=== PATIENT | male | born 1950 | race Caucasian/White ===

== ENCOUNTER 2017-08-13 14:39 | Emergency (ER) | payer MEDICARE, BC ==
--- NOTE | 2017-08-13 15:46 | EDM.PDOC ---
ED HPI GENERAL MEDICAL PROBLEM - General Chief Complaint: General Stated Complaint: edema, weakness Time Seen by Provider: 08/13/17 14:55 Source of Information: Reports: Patient, Old Records ([facility] EMR. No paper hospital chart available.), Other (Limited records from [facility]) History Limitations: Reports: No Limitations - History of Present Illness INITIAL COMMENTS - FREE TEXT/NARRATIVE: Patient was brought to the emergency room via transport vehicle from his assisted living facility for evaluation of progressive confusion during the last few days secondary to his hepatic encephalopathy with additional history of return progressive nonspecific abdominal pain secondary to his recurrent ascites. Patient did have a paracentesis in this facility on 08/08/17 with subsequent IV albumin infusion, however symptoms continued to remain refractory to therapy. He is a somewhat poor historian secondary to his mental status, which is aggravated by his hyponatremia. His regular provider did order blood work earlier this morning. The patient denies any chest pain/pressure, heart flutter, dizziness, orthostasis, orthopnea, diaphoresis, paresthesias, recent decreased exercise tolerance, or any other anginal-type symptoms. No recent history of heartburn, nausea, diarrhea, melena, gross hematochezia, or any food intolerance, including fatty foods, etc.. The patient also denies any recent fever, cough, wheezing, dyspnea, etc.. Onset: Gradual Duration: Day(s):, Constant, Getting Worse Location: Reports: Abdomen, Generalized. Denies: Head, Face, Neck, Chest, Back , Pelvis, Upper Extremity, Left, Upper Extremity, Right, Lower Extremity, Right , Radiates to Quality: Reports: Pressure, Same as Previous Episode Severity: Moderate Improves with: Reports: None Context: Reports: Other (As above) Associated Symptoms: Reports: Confusion. 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) (None) Abdomen Pain Score (Numeric/FACES): 7 - Related Data Allergies Allergy/AdvReac Type Severity Reaction Status Date / Time Penicillins Allergy Vomiting Verified 08/08/17 14:34 Home Meds: Home Meds Budesonide [Pulmicort Flexhaler] 2 inh IH BID 08/13/17 [History] Bumetanide [Bumex] 1 mg PO BID 08/13/17 [History] Cyanocobalamin (Vitamin B-12) [B-12] 500 mcg PO DAILY 08/13/17 [History] Folic Acid 1 mg PO DAILY 08/13/17 [History] Lactulose [Chronulac] 30 ml PO BID 08/13/17 [History] Magnesium Oxide [Magnesium] 400 mg PO BID 08/13/17 [History] Midodrine 10 mg PO TID 08/13/17 [History] Multivitamin [Multi-Day Vitamins] 1 each PO DAILY 08/13/17 [History] Omeprazole 40 mg PO DAILY 08/13/17 [History] Spironolactone [Aldactone] 50 mg PO DAILY 08/13/17 [History] Thiamine [Vitamin B-1] 100 mg PO DAILY 08/13/17 [History] Past Medical History HEENT History: Reports: Impaired Vision, Other (See Below). Denies: Allergic Rhinitis, Cataract, Glaucoma, Hard of Hearing, Macular Degeneration Other HEENT History: Patient wears glasses Cardiovascular History: Denies: Aneurysm, Arrhythmia, Blood Clots/VTE/DVT, CAD, Heart Failure, High Cholesterol, Hypertension, ME, Syncope Respiratory History: Reports: Bronchitis, Recurrent, COPD. Denies: PE Gastrointestinal History: Reports: GERD, Hepatitis, Jaundice, Other (See Below) . 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 Denies: Acute Renal Failure, Chronic Renal Insuffiency, Renal Calculus, Urinary Incontinence, UTI, Recurrent Musculoskeletal History: Reports: None. Denies: Arthritis, Back Pain, Chronic, Fracture, Gout, Neck Pain, Chronic, Osteoarthritis, Osteoporosis, RA, SLE Neurological History: Reports: Other (See Below). Denies: Cerebral Aneurysms, Concussion, CVA, Headaches, Chronic, Head Trauma, Migraines, MS, Parkinson's, Seizure, TIA Other Neuro History: Patient denies DTs however evidence of alcoholic encephalopathy Psychiatric History: Reports: Addiction, Anxiety, Depression, Other (See Below) . Denies: Psych Hospitalization(s), Psychosis, PTSD, Suicide Attempt, Suicidal Ideation Other Psychiatric History: Alcohol abuse for about 12 years with no alcohol use since April 2017 secondary to liver disease as above Endocrine/Metabolic History: Reports: Other (See Below). Denies: Diabetes, Type I, Diabetes, Type II, Hypothyroidism, IDDM Other Endocrine/Metabolic History: Known hypoalbuminemia, hypomagnesemia, hyponatremia, etc. with alcohol hepatic disease as above Hematologic History: Reports: Anemia, B12 Deficiency, Other (See Below). Denies : Blood Transfusion(s) Other Hematologic History: Folic acid deficiency Immunologic History: Reports: Immunosuppression, Other (See Below). Denies: AIDS, HIV, SLE Other Immunologic History: Hepatic failure Oncologic (Cancer) History: Reports: None. Denies: Basal Cell Carcinoma, Hodgkin's Lymphoma, Leukemia, Lymphoma, Malignant Melanoma, Non-Hodgkin's Lymphoma, Squamous Cell Carcinoma Dermatologic History: Denies: Eczema, Psoriasis, Venous Stasis Dermatitis - Infectious Disease History Infectious Disease History: Reports: Chicken Pox, Measles. Denies: C-Difficile , Hepatitis B, Hepatitis C, Hepatitis non A,B,C, Meningitis, Mononucleosis, MRSA , Mumps, Pertussis (Whooping Cough), Rheumatic Fever, Rubella, Scarlet Fever, Shingles, TB, VRE - Past Surgical History Head Surgeries/Procedures: Reports: None HEENT Surgical History: Reports: None Cardiovascular Surgical History: Reports: None. Denies: Varicose, Vascular Surgery Respiratory Surgical History: Reports: None. Denies: Thoracentesis GI Surgical History: Reports: Abdominal paracentesis, Other (See Below). Denies : Appendectomy, Cholecystectomy, Colonoscopy, EGD, Hernia, Abdominal, Hernia, Inguinal, Hernia Repair/Other, Polypectomy Other GI Surgeries/Procedures: Recurrent paracentesis with last procedure on at [facility] Male Surgical History: Reports: None. Denies: TURP-Transurethral Resection of Prostate, Vasectomy Endocrine Surgical History: Reports: None Neurological Surgical History: Reports: None Musculoskeletal Surgical History: Reports: None Oncologic Surgical History: Reports: None Dermatological Surgical History: Reports: None - History Comment History Comment: Patient is a poor historian possibly secondary to alcoholic encephalopathy and hyponatremia Social & Family History - Tobacco Use Smoking Status *Q: Former Smoker Tobacco Use Within Last Twelve Months: Cigarettes Years of Tobacco use: 40 Packs/Tins Daily: 1.5 (Smoked between ages 17 and 57) Second Hand Smoke Exposure: No - Caffeine Use Caffeine Use: Reports: None - Alcohol Use Alcohol Use History: Yes Days Per Week of Alcohol Use: 7 (Recall abuse history as above) Date/Time of Last Drink Comment: April 2017 Alcohol Use in Last Twelve Months: Yes Alcohol Use Frequency: Binges - Recreational Drug Use Recreational Drug Use: No Drug Use in Last 12 Months: No - Living Situation & Occupation Living situation: Reports: Assisted Living ([facility] assisted living facility in [place]) ED ROS GENERAL - Review of Systems Review Of Systems: ROS reveals no pertinent complaints other than HPI. ED EXAM, GENERAL - Physical Exam Exam: See Below Exam Limited By: Altered Mental Status General Appearance: WD/WN, No Apparent Distress, Anxious (Mild), Other (Mild confusion and sedation) Eye Exam: Bilateral Eye: EOMI, PERRL, Other (Moderate scleral icterus with no nystagmus; patient wearing glasses;) Ears: Normal External Exam, Normal Canal, Hearing Grossly Normal, Normal TMs Nose: Normal Inspection, Normal Mucosa, No Blood Throat/Mouth: Normal Inspection, Normal Lips, Normal Teeth, Normal Gums, Normal Oropharynx, Normal Voice, No Airway Compromise. No: Dysphagia, Perioral Cyanosis Head: Atraumatic, Normocephalic. No: Facial Swelling, Facial Tenderness, Sinus Tenderness Neck: Normal Inspection, Supple, Non-Tender, Full Range of Motion. No: Lymphadenopathy (L), Lymphadenopathy (R), Thyromegaly Respiratory/Chest: No Respiratory Distress, Lungs Clear, Normal Breath Sounds, No Accessory Muscle Use, Chest Non-Tender. No: Pleural Rub, Retractions Cardiovascular: Normal Peripheral Pulses, Regular Rate, Rhythm, No Edema, No Gallop, No JVD, No Murmur, No Rub. No: Gallop/S3, Gallop/S4, Friction Rub Peripheral Pulses: 2+: Radial (L), Radial (R) GI/Abdominal: Normal Bowel Sounds, Distended (Secondary to severe ascites), Rigid (As above), Tender (Mild diffuse palpation pain), Hepatomegaly, Splenomegaly. No: Guarding, Rebound (Male) Exam: Deferred Rectal (Males) Exam: Deferred Back Exam: Normal Inspection, Full Range of Motion. No: CVA Tenderness (L), CVA Tenderness (R) Extremities: Normal Inspection, Normal Range of Motion, Non-Tender, No Pedal Edema, Normal Capillary Refill. No: Miguel's Sign Neurological: CN II-XII Intact, Normal Cognition, Normal Gait, Normal Reflexes, No Motor/Sensory Deficits, Confused (Mild) Psychiatric: Anxious (Mild), Depressed Mood (Mild). No: Tearful Skin Exam: Jaundice (Moderate). No: Diaphoretic, Petechiae, Wound/Incision Lymphatic: No Adenopathy Course - Vital Signs Last Recorded V/S: Last Vital Signs Temp 36.5 C 08/13/17 14:41 Pulse 100 08/13/17 14:41 Resp 20 08/13/17 14:41 BP 119/62 08/13/17 14:41 Pulse Ox 99 08/13/17 14:41 Vital Signs - 24 hr 08/13/17 14:41 Temperature [ 36.5 C Temporal] Pulse, 100 Peripheral [ Pulse Oximetry] Respiratory 20 Rate Blood Pressure 119/62 [Left Upper Arm ] O2 Sat by Pulse 99 Oximetry - Orders/Labs/Meds Orders: Active Orders 24 hr Category Date Time Status Obtain Past Medical Record [OM.PC] Routine Oth 08/13/17 15:19 Active Labs: Laboratory Tests 08/13/17 08/13/17 08/13/17 Range/Units 15:37 15:37 15:37 PT 14.7 H (9.8-11.7) SEC INR 1.4 APTT 30.6 H (22.1-29.8) SEC Sodium 125 L (136-145) mmol/L Potassium 3.6 (3.5-5.1) mmol/L Chloride 90 L (98-107) mmol/L Carbon Dioxide 29.7 (21.0-32.0) mmol/L BUN 6 L (7-18) mg/dL Creatinine 0.55 (0.51-1.17) mg/dL Est Cr Clr Drug Dosing 138.81 mL/min Estimated GFR (MDRD) > 60 mL/min Glucose 125 H (74-106) mg/dL Lactic Acid 2.0 (0.4-2.0) mmol/L Calcium 8.4 L (8.5-10.1) mg/dL Total Bilirubin 3.1 H (0.2-1.0) mg/dL AST 31 (15-37) U/L ALT 23 (12-78) U/L Alkaline Phosphatase 108 (46-116) IU/L Ammonia (11-32) umol/L Total Protein 6.0 L (6.4-8.2) g/dL Albumin 3.3 L (3.4-5.0) g/dL Amylase 70 (25-115) U/L Lipase 370 (73-393) U/L Ethyl Alcohol (0.000-0.080) g/dL 08/13/17 08/13/17 Range/Units 15:37 15:37 PT (9.8-11.7) SEC INR APTT (22.1-29.8) SEC Sodium (136-145) mmol/L Potassium (3.5-5.1) mmol/L Chloride (98-107) mmol/L Carbon Dioxide (21.0-32.0) mmol/L BUN (7-18) mg/dL Creatinine (0.51-1.17) mg/dL Est Cr Clr Drug Dosing mL/min Estimated GFR (MDRD) mL/min Glucose (74-106) mg/dL Lactic Acid (0.4-2.0) mmol/L Calcium (8.5-10.1) mg/dL Total Bilirubin (0.2-1.0) mg/dL AST (15-37) U/L ALT (12-78) U/L Alkaline Phosphatase (46-116) IU/L Ammonia 34 H (11-32) umol/L Total Protein (6.4-8.2) g/dL Albumin (3.4-5.0) g/dL Amylase (25-115) U/L Lipase (73-393) U/L Ethyl Alcohol 0.001 (0.000-0.080) g/dL See photocopies of CBC, basic metabolic panel, etc. conducted earlier today from previous blood work Meds: None - Radiology Interpretation Free Text/Narrative:: None Departure - Departure Time of Disposition: 17:10 Disposition: DC/Tfer to Acute Hospital 02 Condition: Poor Clinical Impression: Hepatic failure due to alcoholism, Hyponatremia, Alcoholic encephalopathy, Mixed anxiety depressive disorder, Peptic reflux disease COPD (chronic obstructive pulmonary disease) Qualifiers: COPD type: emphysema Emphysema type: panlobular Qualified Code(s): J43.1 - Panlobular emphysema Anemia Qualifiers: Anemia type: other cause Other causes of anemia: other cause, not classified Qualified Code(s): D64.89 - Other specified anemias - Discharge Information Referrals: Bisi Bush, TELECOMMUNICATIONS ENGINEER [Primary Care Provider] - Forms: ED Department Discharge, Interfacility Transfer EMTALA - Problem List & Annotations (1) Hepatic failure due to alcoholism SNOMED Code(s): 359629988 Code(s): K70.40 - ALCOHOLIC HEPATIC FAILURE WITHOUT COMA Status: Chronic Priority: High Current Visit: Yes Annotation/Comment:: Telephone consultation at 16:[address] Santana, hospitalist at [facility], who does accept the patient for direct admission, with no further treatment recommendations given. He is aware of private automobile transfer with the patient's [id number] to drive him [facility] to that facility for hospitalization. Patient will likely need repeat paracentesis, nephrology consultation, etc. (2) Hyponatremia SNOMED Code(s): 66585510 Code(s): E87.1 - HYPO-OSMOLALITY AND HYPONATREMIA Status: Chronic Priority: Medium Current Visit: Yes Annotation/Comment:: Note that 50 mg of IV albumin was infused to recent paracentesis in our facility on 08/08/17. Medication adjustment depending on his clinical course (3) Alcoholic encephalopathy SNOMED Code(s): 747743326 Code(s): G31.2 - DEGENERATION OF NERVOUS SYSTEM DUE TO ALCOHOL; F10.20 - ALCOHOL DEPENDENCE, UNCOMPLICATED Status: Chronic Priority: Medium Current Visit: Yes Annotation/Comment:: Continue to observe his mental status closely with vitamin B-12, folic acid etc. already being supplemented. Note additional hyponatremia as above (4) Mixed anxiety depressive disorder SNOMED Code(s): 836514998 Code(s): F41.8 - OTHER SPECIFIED ANXIETY DISORDERS Status: Chronic Priority: Medium Current Visit: Yes Annotation/Comment:: Stable by history with no alcohol use in April 2017 with normal alcohol level today (5) Anemia SNOMED Code(s): 616662322 Code(s): D64.9 - ANEMIA, UNSPECIFIED Status: Chronic Priority: Medium Current Visit: Yes Annotation/Comment:: Continue to observe closely by accepting providers. No direct evidence of acute GI bleed. Patient denies esophageal varices despite his history of probable portal hypertension Qualifiers: Anemia type: other cause Other causes of anemia: other cause, not classified Qualified Code(s): D64.89 - Other specified anemias (6) COPD (chronic obstructive pulmonary disease) SNOMED Code(s): 03373429 Code(s): J44.9 - CHRONIC OBSTRUCTIVE PULMONARY DISEASE, UNSPECIFIED Status : Chronic Priority: Medium Current Visit: Yes Annotation/Comment:: Stable by history with no recent fever or bronchitic type symptoms Qualifiers: COPD type: emphysema Emphysema type: panlobular Qualified Code(s): J43.1 - Panlobular emphysema (7) Peptic reflux disease SNOMED Code(s): 81342942 Code(s): K21.9 - GASTRO-ESOPHAGEAL REFLUX DISEASE WITHOUT ESOPHAGITIS Status: Chronic Priority: Medium Current Visit: Yes Annotation/Comment:: Currently only under therapy. Further GI workup depending on his clinical course - Problem List Review Problem List Initiated/Reviewed/Updated: Yes - My Orders Last 24 Hours: My Active Orders 08/13/17 15:19 Obtain Past Medical Record [OM.PC] Routine - Assessment/Plan Last 24 Hours: My Active Orders 08/13/17 15:19 Obtain Past Medical Record [OM.PC] Routine Assessment:: As above Plan: As above. Extensive precautions were given to the patient and his daughter-in- law, who are in agreement with the treatment plan.
[2017-08-13 16:00] LABS: CHLORIDE,CL 90 mmol/L (98-107); SODIUM,NA 125 mmol/L (136-145)
== END 2017-08-13 17:05 ==
LOC: LL.ED 14:39
DX: K70.40 Alcoholic hepatic failure without coma (principal); G31.2 Degeneration of nervous system due to alcohol; F41.8 Other specified anxiety disorders; K21.9 Gastro-esophageal reflux disease without esophagitis; J43.1 Panlobular emphysema; E87.1 Hypo-osmolality and hyponatremia; D64.89 Other specified anemias; Z87.891 Personal history of nicotine dependence; Z79.899 Other long term (current) drug therapy; Z88.0 Allergy status to penicillin
CPT/HCPCS: 36415; 80053; 82140; 82150; 83605; 83690; 85610; 85730; 99285; G0480

== ENCOUNTER 2017-09-04 19:15 | Observation (INO) | END 2017-09-06 12:15 | disposition home or self-care (01) | DX: K70.40 Alcoholic hepatic failure without coma (principal); J44.9 Chronic obstructive pulmonary disease, unspecified; N40.0 Benign prostatic hyperplasia without lower urinary tract symptoms; K21.9 Gastro-esophageal reflux disease without esophagitis; F41.9 Anxiety disorder, unspecified; F32.9 Major depressive disorder, single episode, unspecified; E88.09 Other disorders of plasma-protein metabolism, not elsewhere classified; E83.42 Hypomagnesemia; E87.1 Hypo-osmolality and hyponatremia; Z79.899 Other long term (current) drug therapy; Z88.0 Allergy status to penicillin; Z87.891 Personal history of nicotine dependence | CPT/HCPCS: 36415; 49083; 80048; 80076; 82140; 85025; 96365; 96375; 96376; 99285; A9270; G0378; J2270; J2405; J7050; P9047 ==

== ENCOUNTER 2017-09-16 19:00 | Emergency (ER) | payer MEDICARE, BC ==
--- NOTE | 2017-09-16 19:18 | EDM.PDOC ---
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 The patient has been coming to this facility on almost a weekly basis during the last month secondary to recurrence of his ascites. 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 The patient denies any chest pain/pressure, heart flutter, dizziness, orthostasis, orthopnea , diaphoresis, paresthesias, recent decreased exercise tolerance, or any other anginal-type symptoms. No recent history of abdominal pain, heartburn, nausea, diarrhea, melena, gross hematochezia, or any food intolerance, including fatty foods, etc.. The patient also denies any recent fever, cough, wheezing, dyspnea , etc.. Onset: Gradual Onset Date: 09/12/17 Duration: Constant, Getting Worse Location: Reports: Abdomen. Denies: Head, Face, Neck, Chest, Back, Pelvis, Upper Extremity, Left, Upper Extremity, Right, Lower Extremity, Left, Lower Extremity, Right, Generalized, Radiates to Quality: Reports: Ache, Pressure, Same as Previous Episode Severity: Severe Improves with: Reports: None Worsens with: Reports: None Context: Reports: Other (As above) Associated Symptoms: Reports: Confusion (Stable chronic), Malaise (Stable chronic), Weakness (Stable chronic). 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 below) (None) Abdominal Pain Score (Numeric/FACES): 8 - Related Data Allergies Allergy/AdvReac Type Severity Reaction Status Date / Time Penicillins Allergy Vomiting Verified 09/16/17 19:20 Home Meds: Home Meds Budesonide [Pulmicort Flexhaler] 2 inh IH BID 08/13/17 [History] Bumetanide [Bumex] 1 mg PO BID 08/13/17 [History] Lactulose [Chronulac] 30 ml PO BID 08/13/17 [History] Magnesium Oxide [Magnesium] 400 mg PO BID 08/13/17 [History] Thiamine [Vitamin B-1] 100 mg PO DAILY 08/13/17 [History] Acetaminophen/HYDROcodone [[place] 162.5-5 MG] 1 tab PO Q6H 10 Days #40 tablet [Rx] Cyanocobalamin (Vitamin B12) [Vitamin B12] 500 mcg PO DAILY tablet 09/06/17 [Rx ] Folic Acid 1 mg PO DAILY tablet 09/06/17 [Rx] Midodrine 10 mg PO TID tablet 09/06/17 [Rx] Multivitamins [Tab-A-Virgen] 1 tab PO DAILY tablet 09/06/17 [Rx] Omeprazole 40 mg PO DAILY cap.cr 09/06/17 [Rx] Spironolactone [Aldactone] 50 mg PO BID 30 Days #60 tablet 09/06/17 [Rx] Past Medical History HEENT History: Reports: Impaired Vision, Other (See Below). Denies: Allergic Rhinitis, Cataract, Glaucoma, Hard of Hearing, Macular Degeneration Other HEENT History: Patient wears glasses Cardiovascular History: Reports: None. Denies: Afib, Aneurysm, Arrhythmia, Blood Clots/VTE/DVT, CAD, Heart Failure, High Cholesterol, Hypertension, NC, Syncope Respiratory History: Reports: Bronchitis, Recurrent, COPD. Denies: PE Gastrointestinal History: Reports: GERD, Hepatitis, Jaundice, Other (See Below) . 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 Denies: Acute Renal Failure, Chronic Renal Insuffiency, Renal Calculus, Urinary Incontinence, UTI, Recurrent Musculoskeletal History: Reports: None. Denies: Arthritis, Back Pain, Chronic, Fracture, Gout, Neck Pain, Chronic, Osteoarthritis, RA, SLE Neurological History: Reports: Other (See Below). Denies: Cerebral Aneurysms, Concussion, CVA, Headaches, Chronic, Head Trauma, Migraines, MS, Parkinson's, Seizure, TIA Other Neuro History: Patient denies DTs however evidence of alcoholic encephalopathy Psychiatric History: Reports: Addiction, Anxiety, Depression, Other (See Below) . Denies: Psych Hospitalization(s), Psychosis Other Psychiatric History: Alcohol abuse for about 12 years with no alcohol use since April 2017 secondary to liver disease as above Endocrine/Metabolic History: Reports: Other (See Below). Denies: Diabetes, Type I, Diabetes, Type II, Diabetes Mellitus, Type 3c, Hypothyroidism, IDDM Other Endocrine/Metabolic History: Known hypoalbuminemia, hypomagnesemia, hyponatremia, etc. with alcohol hepatic disease as above Hematologic History: Reports: Anemia, B12 Deficiency, Other (See Below). Denies : Blood Transfusion(s), Iron Deficiency Other Hematologic History: Folic acid deficiency Immunologic History: Reports: Immunosuppression, Other (See Below). Denies: AIDS, HIV, SLE Other Immunologic History: Hepatic failure Oncologic (Cancer) History: Reports: None. Denies: Basal Cell Carcinoma, Hodgkin's Lymphoma, Leukemia, Lymphoma, Malignant Melanoma, Non-Hodgkin's Lymphoma, Squamous Cell Carcinoma Dermatologic History: Reports: Venous Stasis Dermatitis. Denies: Eczema, Psoriasis - Infectious Disease History Infectious Disease History: Reports: Chicken Pox, Measles. Denies: C-Difficile , Hepatitis B, Hepatitis C, Hepatitis non A,B,C, Meningitis, Mononucleosis, MRSA , Mumps, Pertussis (Whooping Cough), Rheumatic Fever, Rubella, Scarlet Fever, Shingles, TB, VRE - Past Surgical History Head Surgeries/Procedures: Reports: None HEENT Surgical History: Reports: None Cardiovascular Surgical History: Reports: None. Denies: Varicose, Vascular Surgery Respiratory Surgical History: Reports: None. Denies: Thoracentesis GI Surgical History: Reports: Abdominal paracentesis, Other (See Below). Denies : Appendectomy, Cholecystectomy, Colonoscopy, EGD, Hernia, Abdominal, Hernia, Inguinal, Hernia Repair/Other Other GI Surgeries/Procedures: Recurrent paracentesis on almost a weekly basis since July 2017 with last procedure in this facility on 09/12/17 Male Surgical History: Reports: None. Denies: TURP-Transurethral Resection of Prostate Endocrine Surgical History: Reports: None Neurological Surgical History: Reports: None Musculoskeletal Surgical History: Reports: None Oncologic Surgical History: Reports: None Dermatological Surgical History: Reports: None - Past Imaging History Past Imaging History: Reports: Ultrasound (Recurrent limited abdominal ultrasounds for weekly paracentesis procedures as above) - History Comment History Comment: Patient is a poor historian possibly secondary to alcoholic encephalopathy with majority of history taken from his last emergency room note by me on 08/13/17 Social & Family History - Tobacco Use Smoking Status *Q: Former Smoker Tobacco Use Within Last Twelve Months: No, Cigarettes Years of Tobacco use: 50 Packs/Tins Daily: 1.5 (Smoked between ages 17 and 67) Used Tobacco, but Quit: Yes Month Tobacco Last Used: August 2017 Smoking Cessation Information Provided To Patient: No Second Hand Smoke Exposure: No Second Hand Smoke Education Provided: No - Caffeine Use Caffeine Use: Reports: None - Alcohol Use Alcohol Use History: Yes Days Per Week of Alcohol Use: 7 (Alcohol abuse history as above) Alcohol Use in Last Twelve Months: Yes Alcohol Use Frequency: Binges - Recreational Drug Use Recreational Drug Use: No Drug Use in Last 12 Months: No - Living Situation & Occupation Living situation: Reports: Assisted Living ([facility] assisted living facility in [place], although apparent plans to move into [facility] in [place] in the near future) ED ROS GENERAL - Review of Systems Review Of Systems: ROS reveals no pertinent complaints other than HPI. ED EXAM, GENERAL - Physical Exam Exam: See Below Exam Limited By: Altered Mental Status General Appearance: Lethargic (Mildly), Mild Distress (Mild secondary to abdominal discomfort) Eye Exam: Bilateral Eye: EOMI, Periorbital Changes, Other (Mild scleral icterus) Head: Atraumatic, Normocephalic Neck: Normal Inspection, Supple, Non-Tender, Full Range of Motion. No: Lymphadenopathy (L), Lymphadenopathy (R), Thyromegaly Respiratory/Chest: No Respiratory Distress, No Accessory Muscle Use, Chest Non- Tender, Rales (Mild bilateral basilar rales). No: Rhonchi, Wheezing, Pleural Rub, Retractions Cardiovascular: Normal Peripheral Pulses, Regular Rate, Rhythm, No Edema, No Gallop, No JVD, No Murmur, No Rub. No: Gallop/S3, Gallop/S4, Friction Rub Peripheral Pulses: 2+: Radial (L), Radial (R) GI/Abdominal: Normal Bowel Sounds, Pelvis Stable, Distended (Moderate to severe) , Tender (Mild diffuse), Other (Severe ascites with HSM difficult to assess secondary to his ascites). No: Guarding, Rebound (Male) Exam: Deferred Rectal (Males) Exam: Deferred Back Exam: Normal Inspection, Full Range of Motion. No: CVA Tenderness (L), CVA Tenderness (R), Muscle Spasm Extremities: Pedal Edema (+2 bilateral pitting pretibial and tibial edema versus borderline lymphedema with mild venous stasis dermatitis left greater than right). No: Miguel's Sign Neurological: Alert, Confused (Mild but stable from previous exam) Psychiatric: Normal Affect, Normal Mood Skin Exam: Warm, Dry, Intact, Other (Mild jaundice). No: Diaphoretic, Ecchymosis, Petechiae, Wound/Incision Lymphatic: No Adenopathy Course - Vital Signs Last Recorded V/S: Last Vital Signs Temp 36.3 C 09/16/17 19:00 Pulse 101 H 09/16/17 19:00 Resp 20 09/16/17 19:00 BP 112/55 L 09/16/17 19:00 Pulse Ox 98 09/16/17 19:00 Vital Signs - 24 hr 09/16/17 09/16/17 09/16/17 19:00 19:28 19:31 Temperature [ 36.3 C Oral] Pulse, 101 H 98 99 Peripheral [ Pulse Oximetry] Respiratory 20 20 18 Rate Blood Pressure 112/55 L 110/96 H 115/57 L [Left Upper Arm ] O2 Sat by Pulse 98 97 97 Oximetry 09/16/17 19:48 Temperature [ Oral] Pulse, 96 Peripheral [ Pulse Oximetry] Respiratory 18 Rate Blood Pressure 118/55 L [Left Upper Arm ] O2 Sat by Pulse 96 Oximetry - Orders/Labs/Meds Labs: None Meds: None - Radiology Interpretation Free Text/Narrative:: None Departure - Departure Time of Disposition: 20:05 Disposition: DC/Tfer to Acute Hospital 02 Condition: Poor Clinical Impression: Alcoholic encephalopathy, Hepatic failure due to alcoholism, Mixed anxiety depressive disorder, Peptic reflux disease COPD (chronic obstructive pulmonary disease) Qualifiers: COPD type: emphysema Emphysema type: panlobular Qualified Code(s): J43.1 - Panlobular emphysema - Discharge Information Referrals: Sheets-Ann Mccoy MD [Primary Care Provider] - Forms: ED Department Discharge, Interfacility Transfer [facility] Additional Instructions: 1. Have your son, Ben, drive you to the emergency room at [facility] in [place] 2. Strict nothing to eat or drink until otherwise directed by accepting physicians in [place] - Problem List & Annotations (1) Hepatic failure due to alcoholism SNOMED Code(s): 634720038 Code(s): K70.40 - ALCOHOLIC HEPATIC FAILURE WITHOUT COMA Status: Chronic Priority: High Annotation/Comment:: Various therapeutic options were discussed with the patient and his son, Ben. Initial telephone consultation with [facility] in [place] at 19:28 hours, including subsequent telephone consultation with Dr. Hernandez, interventional radiology, at 19:35 hours, who does agree to perform a paracentesis tomorrow. Subsequent telephone consultation at 19:[address] Price, emergency room physician at , who does accept the patient for further evaluation and probable subsequent direct admission for paracentesis as above. No further treatment recommendations given. He is aware of private automobile transfer of the patient to their facility by the patient's son. No additional x-rays, blood work , etc. were conducted in this facility in hopes of expediting patient transfer. The patient is apparently not a candidate for a shunt per his son's history? Patient has been getting essentially weekly paracentesis procedures since July, including 8 L withdrawn on 09/12/17, 8.5 L on 09/05/17, and 7.5 L on 08/29 in this facility by our visiting consulting general surgeons. The patient would benefit from a permanent peritoneal catheter secondary to these recurrent procedures. Family is not yet apparently ready to initiate hospice care, although they apparently plan senior living placement in this community in the near future as above. Emotional support was provided. (2) Alcoholic encephalopathy SNOMED Code(s): 861908561 Code(s): G31.2 - DEGENERATION OF NERVOUS SYSTEM DUE TO ALCOHOL; F10.20 - ALCOHOL DEPENDENCE, UNCOMPLICATED Status: Chronic Priority: Medium Annotation/Comment:: Continue to observe his mental status closely with vitamin B-12, folic acid etc. already being supplemented. His confusion today is stable from my previous exams of the patient in our emergency room, although he has had some mild increased ammonia levels and hyponatremia in the past. (3) Anemia SNOMED Code(s): 696070896 Code(s): D64.9 - ANEMIA, UNSPECIFIED Status: Chronic Priority: Medium Annotation/Comment:: Continue to observe closely by accepting providers. No direct evidence of acute GI bleed. Patient denies esophageal varices despite his history of probable portal hypertension Qualifiers: Anemia type: other cause Other causes of anemia: other cause, not classified Qualified Code(s): D64.89 - Other specified anemias (4) COPD (chronic obstructive pulmonary disease) SNOMED Code(s): 56134536 Code(s): J44.9 - CHRONIC OBSTRUCTIVE PULMONARY DISEASE, UNSPECIFIED Status : Chronic Priority: Medium Annotation/Comment:: Stable by history with no recent fever or bronchitic type symptoms Qualifiers: COPD type: emphysema Emphysema type: panlobular Qualified Code(s): J43.1 - Panlobular emphysema (5) Mixed anxiety depressive disorder SNOMED Code(s): 887944988 Code(s): F41.8 - OTHER SPECIFIED ANXIETY DISORDERS Status: Chronic Priority: Medium Annotation/Comment:: Stable by history with no alcohol use since April 2017 (6) Peptic reflux disease SNOMED Code(s): 61263258 Code(s): K21.9 - GASTRO-ESOPHAGEAL REFLUX DISEASE WITHOUT ESOPHAGITIS Status: Chronic Priority: Medium Annotation/Comment:: Currently not under therapy. Further GI workup depending on his clinical course - Problem List Review Problem List Initiated/Reviewed/Updated: Yes - Assessment/Plan Assessment:: As above Plan: As above. Extensive precautions were given to the patient and his son, who are in agreement with the treatment plan. See Patient Instructions for further treatment and plan.
== END 2017-09-16 20:05 ==
LOC: LL.ED 19:00
DX: K70.40 Alcoholic hepatic failure without coma (principal); G31.2 Degeneration of nervous system due to alcohol; F41.8 Other specified anxiety disorders; K21.9 Gastro-esophageal reflux disease without esophagitis; J44.9 Chronic obstructive pulmonary disease, unspecified; I10 Essential (primary) hypertension; Z88.0 Allergy status to penicillin; Z79.899 Other long term (current) drug therapy; Z87.891 Personal history of nicotine dependence
CPT/HCPCS: 99284